=== PATIENT | male | born 1960 | race Caucasian/White ===

== ENCOUNTER 2017-04-08 09:54 | Day surgery (SDC) | payer MEDICARE, OTHER ==
[~2017-04-08] VITALS: Ht 177.8 cm; Wt 115.2 kg
[~2017-04-08 09:54] MED LIST: ABAT250V; ALBU90OI61 INH; ATOR40TA PO; AZIT250 PO; AZIT500 PO; BAYER CHEWABLE81 MG PO; CARV3.125 PO; CETI10 PO; CIPRSO OD; CLOP75 PO; DIPH50 PO; DIVA500ER PO; DOXE50 PO; FAMO20 PO; FEXO180 PO; HYDACE7.5L PO; HYDCHL25 PO; HYDPAM25 PO; LAMO100 PO; LAMO25 PO; LATUDA60 MG PO; LORA1 PO; Lithium Carbon600 MG PO; METF500 PO; Mepron750 MG/5 M PO; NIAC250ER PO; OLAN5 PO; OMEG1CAP30; OXYACE5T PO; PANT40 PO; PIOG15 PO; POTCHL20ER PO; PREZISTA800 MG PO; PROC10 PO; Percocet 5-3251 EACH PO; QUET300 PO; RISP1 PO; ROSU10TA PO; RXLORA1 PO; RXOXYACE PO; STRIBILD TABLE1 EACH PO; TOPI50 PO
== END 2017-04-08 22:57 | disposition home or self-care (01) ==
LOC: ORSCMMR 09:54
PROVIDERS: Internal Medicine Gastroenterology
PROC: 0DBM8ZX Excision of Descending Colon, Via Natural or Artificial Opening Endoscopic, Diagnostic (ICD-10-PCS; principal; 2017-04-08 11:00)
PROC: 0DBL8ZX Excision of Transverse Colon, Via Natural or Artificial Opening Endoscopic, Diagnostic (ICD-10-PCS; principal; 2017-04-08 11:00)
DX: Z12.11 Encounter for screening for malignant neoplasm of colon (principal); D12.3 Benign neoplasm of transverse colon; D12.4 Benign neoplasm of descending colon; B20 Human immunodeficiency virus [HIV] disease; E11.9 Type 2 diabetes mellitus without complications; K21.9 Gastro-esophageal reflux disease without esophagitis; F31.9 Bipolar disorder, unspecified; Z79.899 Other long term (current) drug therapy; Z79.82 Long term (current) use of aspirin; Z87.891 Personal history of nicotine dependence
CPT/HCPCS: 82947; 88305; J7120

== ENCOUNTER 2018-11-11 07:01 | Day surgery (SDC) | payer MEDICARE, OTHER ==
[~2018-11-11] VITALS: Ht 180.3 cm; Wt 111.0 kg
[2018-11-11] MEDS ORDERED: OMEG1CAP30 PO (07:45)
[2018-11-11] MEDS ORDERED: BUPR150ER PO (07:48)
--- NOTE | 2018-11-11 09:45 | NUR ---
sBAR from Kamron Curiel RN, Pt arouseable to voice. Pt with 02 2 liters for dropped sat of 88%. Pt with iv infusing NS to left #20 A/C. Pt with call light. Right groin soft non-tender, no bleeding or hematoma noted. Pt in reverse trendelenburg position.
--- NOTE | 2018-11-11 10:31 | NUR ---
Pt with elevated b/p orders received for pain medication as well as HTN med. I have waited to see in b/p will drop with urination pt has full bladder from cath, lab. Pt attempting to void. Medicated for pain 5/10 right groin. DP pulses strong, no bleeding from site soft tender. Pt reassured ? having a bad dream. [place] precautions.
--- NOTE | 2018-11-11 10:50 | NUR ---
Pt reposition for comfort h20 given. Pillow under left leg. Good pain control with rx.
--- NOTE | 2018-11-11 12:00 | NUR ---
PT AMBULATED ROSE WELL, RIGHT GROIN SITE WNL. Pt has slight pain. He is reviewing the post angio information. Sister called at 1130 to pepper picker pt at 1215
--- NOTE | 2018-11-11 12:20 | NUR ---
Dr. Hedrick in speaking to patient and his sister Eva. Pt verbalizes understanding of discharge instructions. Pt with right groin wnl, b/p slightly elevated. Pt instructed and sister to resume Plavix when they get home, as well as starting aspirin. Continue to hold Metformin for 48 hrs. Pt and sister verbazlied understanding. IV removed cath intact, left a/c.
== END 2018-11-11 12:58 | disposition home or self-care (01) ==
LOC: MHTC 07:01
DX: I72.3 Aneurysm of iliac artery (principal); I72.4 Aneurysm of artery of lower extremity; Z88.2 Allergy status to sulfonamides; Z88.8 Allergy status to other drugs, medicaments and biological substances
CPT/HCPCS: 37226; 75625; 75716; 75774; 99152; 99153; C1725; C1760; C1769; C1874; C1887; C1894; J0360; J1644; J2250; J3010; J7030; Q9967

== ENCOUNTER → 2024-05-17 | Outpatient (CLI) | payer MEDICARE, OTHER ==
[~2024-05-17] MED LIST changes: +BIKTARVY 50-201 EAC1 PO; +BUPR150ER PO; +CILOSTAZOL50 M1 PO; +Crestor40 MG PO; +LOSARTAN-HCTZ1 EACH PO; +OMEG1CAP30 PO; +OZEMPIC0.25 MG/02 SC
== END ==
LOC: LAB 07:42 → LAB SHORT 07:42
DX: B35.1 Tinea unguium (principal); L60.2 Onychogryphosis
CPT/HCPCS: 88305; 88312

== ENCOUNTER 2025-01-02 07:03 | Day surgery (SDC) | payer MEDICARE, OTHER ==
[~2025-01-02] VITALS: Ht 177.8 cm; Wt 89.6 kg
[~2025-01-02 07:03] MED LIST changes: +PREZCOBIX 8001 EAC1 PO
--- NOTE | 2025-01-02 07:30 | NUR ---
01/02/25 0730 Flaquito Villasenor CONFIRMED AND REVIEWED H&P, MEDCICATIONS, ALLERGIES, MEDICAL HISTORY, RESPIRATORY HISTORY, VITAL SIGNS, 3-LEAD EKG, CONSENTS, AND PHYSICIAN ORDERS. PATIENT CONFIRMS NPO STATUS AND AGREES WITH SCHEDULED PROCEDURE. MONITOR INTACT WITH CONTINUOUS PULSE OXIMETRY, CAPNOGRAPHY, 3-LEAD EKG, INTERMITTENT BP. SUPPLEMENTAL O2 TO BE TITRATED THROUGHOUT PROCEDURE TO MAINTAIN O2 SATURATION ABOVE 90%. PATIENT DETERMINED TO BE ASA APPROPRIATE FOR PROPOFOL SEDATION PRIOR TO START OF PROCEDURE BY DR. JOSEPH
[2025-01-02 07:34] VITALS: BP 159/80
--- NOTE | 2025-01-02 07:47 | NUR ---
History, Chart, Medications and Allergies reviewed before start of procedure. Pre-Op teaching done. Pt verbalizes understanding. Patient confirms NPO status and agrees with scheduled surgery. Patient states colon prep results CLEAR.
[2025-01-02 08:02] VITALS: BP 159/88
[2025-01-02 08:04] VITALS: BP 204/95
[2025-01-02 09:14] VITALS: BP 134/76
--- NOTE | 2025-01-02 09:26 | NUR ---
Discharged via wheelchair to private car for ride home. Discharge instructions reviewed with patient. Patient verbalizes understanding. Copy given to patient to take home. Patient States Post-Procedure ride home has been arranged.
== END 2025-01-02 23:00 | disposition home or self-care (01) ==
LOC: ORSCMMR 07:03 → ORD 08:00 → ORSCMMR 08:00
DX: Z12.11 Encounter for screening for malignant neoplasm of colon (principal); Z86.0100 Personal history of colon polyps, unspecified; D12.3 Benign neoplasm of transverse colon; D12.2 Benign neoplasm of ascending colon; D12.0 Benign neoplasm of cecum; B20 Human immunodeficiency virus [HIV] disease; E11.9 Type 2 diabetes mellitus without complications; I73.9 Peripheral vascular disease, unspecified; Z79.84 Long term (current) use of oral hypoglycemic drugs; Z79.899 Other long term (current) drug therapy; Z79.02 Long term (current) use of antithrombotics/antiplatelets; Z79.85 Long-term (current) use of injectable non-insulin antidiabetic drugs
CPT/HCPCS: 82947; 88305; J2704; J7120